=== PATIENT | male | born 1980 | race Caucasian/White ===

== ENCOUNTER 2018-12-06 20:56 | Emergency (ER) | payer OTHER ==
[~2018-12-06] VITALS: Ht 188 cm; Wt 105.2 kg
[2018-12-06 21:52] VITALS: BP 145/84
== END 2018-12-06 21:53 | disposition home or self-care (01) ==
LOC: M.ERS 20:56
DX: H61.21 Impacted cerumen, right ear (principal)

== ENCOUNTER 2019-08-05 18:15 | Emergency (ER) | payer OTHER ==
[~2019-08-05] VITALS: Ht 188 cm; Wt 106.3 kg
[2019-08-05 18:50] LABS: MCV 84.1 fL (80.0-100.0); NUCLEATED RBCS 0 /100WBC
[2019-08-05 18:52] LABS: ABSOLUTE BASOPHILS 0.1 thou/uL (0.0-0.2); ABSOLUTE LYMPHOCYTES 1.5 thou/uL (0.8-5.3); ABSOLUTE MONOCYTES 0.7 thou/uL (0.0-1.2); ABSOLUTE NEUTROPHILS 8.6 thou/uL (1.6-8.1); BASOPHILS 0.6 %; EOSINOPHILS 0.2 %; HEMATOCRIT 48.1 % (42.0-52.0); HEMOGLOBIN 16.5 gm/dL (14.0-18.0); LYMPHOCYTES 13.9 %; MCH 28.8 pg (26.0-34.0); MCHC 34.2 g/dL (28.0-37.0); MONOCYTES 6.7 %; MPV 9.1 fl. (7.2-11.1); PLATELET COUNT* 247 thou/uL (150-400); POLYS 78.6 %; RBC 5.72 mil/uL (4.50-6.00)
[2019-08-05 18:56] LABS: CALCIUM 8.7 mg/dL (8.5-10.1); CREATININE 1.2 mg/dL (0.6-1.3); POTASSIUM 3.8 mmol/L (3.5-5.1)
[2019-08-05 19:00] LABS: ALBUMIN 4.1 g/dL (3.4-5.0); TOTAL BILIRUBIN 0.3 mg/dL (<0.1-1.0); TOTAL PROTEIN 8.2 g/dL (6.4-8.2)
[2019-08-05 19:01] LABS: URINE BILIRUBIN NEGATIVE (Negative); URINE BLOOD NEGATIVE (Negative); URINE CLARITY CLEAR; URINE COLOR YELLOW; URINE GLUCOSE-RANDOM NEGATIVE (Negative); URINE KETONES NEGATIVE (Negative); URINE LEUKOCYTES-REFLEX NEGATIVE (Negative); URINE NITRITE-REFLEX NEGATIVE (Negative); URINE PROTEIN TRACE (Negative); URINE SPECIFIC GRAVITY 1.025 (1.005-1.030); URINE UROBILINOGEN 0.2 E.U./dl (0.2-1.0)
[2019-08-05] MEDS ORDERED: FLOMAX0.4 MG PO (20:23)
[2019-08-05] MEDS ORDERED: NORCO 5-325 TA1 EAC1 PO (20:23)
[2019-08-05] MEDS ORDERED: CIPRO500 MG PO (20:23)
[2019-08-05 20:39] VITALS: BP 144/87
== END 2019-08-05 20:39 | disposition home or self-care (01) ==
LOC: M.ERS 18:15
PROVIDERS: Nurse Practitioner Psychiatric/Mental Health
DX: N13.2 Hydronephrosis with renal and ureteral calculous obstruction (principal)